=== PATIENT | male | born 1960 | race Caucasian/White ===

== ENCOUNTER 2020-10-01 14:08 | Emergency (ER) | payer BC ==
[~2020-10-01] VITALS: Ht 172.7 cm; Wt 85.7 kg
[~2020-10-01 14:08] MED LIST: AMARYL2 MG; FOLIC ACID; HYDROXYCHLOR; METFORMIN HCL500 MG PO; METHOTREXATE 22.5 MG; PERCOCET; PREDNISONE 5 MG5 M1; SULFAZINE EC500 MG
[2020-10-01 14:51] LABS: ABSOLUTE BASOPHILS 0.1 thou/uL (0.0-0.2); ABSOLUTE EOSINOPHILS 0.2 thou/uL (0.0-0.7); BASOPHILS 0.5 %; NUCLEATED RBCS 0 /100WBC; RDW-CV 13.1 % (10.5-14.5); WBC 10.8 thou/uL (4.0-11.0)
[2020-10-01 14:56] LABS: ABSOLUTE LYMPHOCYTES 5.8 thou/uL (0.8-5.3); ABSOLUTE MONOCYTES 0.9 thou/uL (0.0-1.2); ABSOLUTE NEUTROPHILS 3.8 thou/uL (1.6-8.1); EOSINOPHILS 2.1 %; HEMATOCRIT 40.1 % (42.0-52.0); HEMOGLOBIN 13.4 gm/dL (14.0-18.0); LYMPHOCYTES 53.9 %; MCH 31.9 pg (26.0-34.0); MCHC 33.6 g/dL (28.0-37.0); MCV 95.2 fL (80.0-100.0); MONOCYTES 8.5 %; MPV 8.6 fl. (7.2-11.1); PLATELET COUNT* 239 thou/uL (150-400); RBC 4.21 mil/uL (4.50-6.00)
[2020-10-01 15:01] VITALS: BP 00/00
[2020-10-01 15:04] LABS: ANION GAP 17 mmol/L (7-16); BUN 17 mg/dL (7-18); CALCIUM 7.3 mg/dL (8.5-10.1); CHLORIDE 108 mmol/L (98-107); CO2 16 mmol/L (21-32); CREATININE 1.3 mg/dL (0.6-1.3); GLUCOSE 167 mg/dL (70-99); INR 1.1; POTASSIUM 4.1 mmol/L (3.5-5.1); PROTIME 11.9 Seconds (9.20-11.50); SODIUM 141 mmol/L (136-145)
[2020-10-01 15:08] LABS: ALBUMIN 2.5 g/dL (3.4-5.0); ALKALINE PHOSPHATASE 62 U/L (46-116); CHOLESTEROL 71 mg/dL (<200); HDL CHOLESTEROL 22 mg/dL (>40); LDL CHOLESTEROL 21 mg/dL (<100); MAGNESIUM 1.7 mg/dL (1.8-2.4); SGOT 18 U/L (15-37); SGPT 24 U/L (30-65); TC:HDL 3.2 Ratio (Not establshd); TOTAL BILIRUBIN 0.3 mg/dL (<0.1-1.0); TOTAL PROTEIN 5.2 g/dL (6.4-8.2); TRIGLYCERIDE 141 mg/dL (<150); VLDL 28 mg/dL (<40)
[2020-10-01 15:09] LABS: SERUM ASSESSMENT Slight Lipemia
--- NOTE | 2020-10-02 11:16 | EKG ---
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[employer]: [facility] : 1960 Requested By: Juaquin Antunez Order Number: [id number] MD: Juan Carlos Weiner Measurements Intervals [place] Rate: 0 P: 0 TX: QRS: 0 QRSD: T: QT: QTc: 0 Interpretive Statements sinus bradycardia LBBB artifact noted No further analysis attempted - not enough leads could be measured No previous ECG available for comparison Electronically Signed On 10-02-2020 11:16:24 CDT by Juan Carlos Weiner [email or web address] <ELECTRONICALLY SIGNED> By: Jua nCarlos Weiner MD, [facility] 10/02/20 1116 1425 1425 Juan Carlos Weiner MD, FAC /EPI
== END 2020-10-01 15:01 ==
LOC: M.ERS 14:08
PROVIDERS: Family Medicine
DX: I46.9 Cardiac arrest, cause unspecified (principal); U07.1 COVID-19; E11.9 Type 2 diabetes mellitus without complications; Z90.49 Acquired absence of other specified parts of digestive tract